=== PATIENT | female | born 1970 | race Caucasian/White ===

== ENCOUNTER 2024-09-28 15:20 | Emergency (ER) | payer BC ==
[2024-09-28] MEDS: Ondansetron 4 MG/2 ML SDV IVPUSH PRN (15:45)
[2024-09-28 15:48] LABS: BASOPHILS ABSOLUTE AUTO 0.02 10^3/uL (0.00-0.50); BASOPHILS PERCENT AUTO 0.2 % (0-1); EOSINOPHILS ABSOLUTE AUTO 0.03 10^3/uL (0.00-1.50); EOSINOPHILS PERCENT AUTO 0.3 % (0-6); IMMATURE GRAN ABSOLUTE AUTO 0.05 10^3/uL (0.00-0.49); IMMATURE GRAN PERCENT AUTO 0.5 % (0.0-4.9); LYMPHOCYTES ABSOLUTE AUTO 1.31 10^3/uL (0.60-5.00); LYMPHOCYTES PERCENT AUTO 13.8 % (24-44); MONOCYTES ABSOLUTE AUTO 0.37 10^3/uL (0.00-1.50); MONOCYTES PERCENT AUTO 3.9 % (0-10); NEUTROPHILS ABSOLUTE AUTO 7.73 x10^3/uL (1.80-8.00); NEUTROPHILS PERCENT AUTO 81.3 % (41-71); PLATELET COUNT,PLT 256 10^3/uL (150-400); RED BLOOD CELL COUNT 4.29 x10^6/uL (4.00-5.50); WHITE BLOOD CELL COUNT,WBC 9.5 10^3/uL (4.0-11.0)
[2024-09-28] MEDS: Iopamidol 755 Mg/ML 100 ML Bottle IVPUSH ONE (15:48)
[2024-09-28 16:01] LABS: ALANINE AMINOTRANSFERASE,ALT 77 U/L (12-78); ASPARTATE AMNIOTRANSFERASE,AST 69 U/L (15-37); BILIRUBIN TOTAL 0.6 mg/dL (0.0-1.0); BLOOD UREA NITROGEN,BUN 20 mg/dL (7-18); CARBON DIOXIDE,CO2 22 mmol/L (21-32); CHLORIDE,CL 101 mEq/L (98-106); CREATININE 1.0 mg/dL (0.6-1.0); GLUCOSE RANDOM 189 mg/dL (75-99); POTASSIUM,K 4.4 mEq/L (3.5-5.0); PROTEIN TOTAL,TP 7.4 g/dL (6.4-8.2); SODIUM,NA 141 mEq/L (136-145)
[2024-09-28 16:03] LABS: ESTIMATED GFR 67 mL/min (>=60)
[2024-09-28 16:13] LABS: APPEARANCE,URINE CLEAR (CLEAR); GLUCOSE,URINE NEGATIVE (NEGATIVE); OCCULT BLOOD,URINE NEGATIVE (NEGATIVE)
[2024-09-28 16:17] LABS: EPITHELIAL CELLS,URINE RARE /HPF (NOT SEEN)
[2024-09-28] MEDS: Ondansetron 4 MG/2 ML SDV IVPUSH STA (18:48)
== END 2024-09-28 18:50 ==
LOC: CC.ED 15:20
DX: K56.609 Unspecified intestinal obstruction, unspecified as to partial versus complete obstruction (principal); Z91.09 Other allergy status, other than to drugs and biological substances; Z88.8 Allergy status to other drugs, medicaments and biological substances; Z79.85 Long-term (current) use of injectable non-insulin antidiabetic drugs; Z79.899 Other long term (current) drug therapy
CPT/HCPCS: 36415; 74177; 80053; 81001; 83605; 83690; 83735; 85025; 96361; 96374; 96375; 96376; 99285; J1171; J2405; J7030; Q9967